=== PATIENT | male | born 1960 | race Caucasian/White ===

== ENCOUNTER 2019-12-02 09:58 | Emergency (ER) | payer OTHER, SELFPAY ==
--- NOTE | ~2019-12-02 | CT_ITS ---
EXAMINATION: CT abd pelvis lumbar w con DATE: 12/02/2019 11:38 INDICATION: Right flank pain. Low back pain. Fall from truck. TECHNIQUE: Computed tomography (CT) of the abdomen and pelvis and lumbar spine was performed with 100 Omnipaque 350 intravenous contrast. Automated exposure control and iterative reconstruction techniqu e were employed. The dose-length product was 774.75 mGy-cm. COMPARISON: None FINDINGS: CT ABDOMEN AND PELVIS: The visualized portions of the lung bases demonstrate mild atelectasis. No ple ural effusion. Calcified right hilar lymph nodes are consistent with old granulomatous disease. The h eart size is normal. No pericardial effusion. The liver, gallbladder, pancreas, and adrenal glands ar e normal. Calcifications in the spleen are consistent with old granulomatous disease. There is a 2 mm stone in right kidney. There is a 10 mm cyst in left kidney. There are no dilated loops of bowel. Th e appendix is normal. There are no pathologically enlarged lymph nodes. There is no free intraperiton eal fluid. There is a subcutaneous hematoma posterior to the pelvis centered to the right of midline. CT LUMBAR SPINE: There is 11 degrees levoscoliosis of lumbar spine. There is mild chronic anterior w edging of T12 vertebral body. There is severely decreased disc height at L5-S1 with endplate remodeli ng. The following disc levels are specifically discussed: L1-L2: The disc does not extend beyond the endplate margin. There is mild bilateral facet joint osteo arthritis. There is no neural foraminal stenosis. There is no central canal stenosis. L2-L3: The disc does not extend beyond the endplate margin. There is mild bilateral facet joint osteo arthritis. There is no neural foraminal stenosis. There is no central canal stenosis. L3-L4: The disc does not extend beyond the endplate margin. There is mild bilateral facet joint osteo arthritis. There is no neural foraminal stenosis. There is no central canal stenosis. L4-L5: The disc is bulging. There is mild bilateral facet joint osteoarthritis. There is mild bilater al neural foraminal stenosis. There is mild central canal stenosis. L5-S1: The disc is bulging. There is mild right and moderate left facet joint osteoarthritis. There i s mild right and moderate left neural foraminal stenosis. There is mild central canal stenosis. IMPRESSION: 1. Subacute hematoma posterior to the pelvis on the right. 2. Severe lower lumbar spondylosis. 3. Lumbar levoscoliosis. Reviewed, dictated and finalized at location A.
[2019-12-02 10:00] VITALS: BP 163/91; PULSE 91; RESP 17; TEMP 36.8; O2SAT 98
--- NOTE | 2019-12-02 10:33 | ED.FALL ---
HPI - Fall General Chief Complaint: Fall Stated Complaint: right hip injury Time Seen by Provider: 12/02/19 10:19 Source: patient Mode of arrival: ambulatory Limitations: no limitations History of Present Illness HPI Narrative: Patient is a 59-year-old male who presents to emergency department for evaluation of injuries related to a fall that occurred this morning at 9 AM patient fell 5 feet onto a metal object sustaining an injury to the lower buttock lumbar region where he developed a large hematoma on the right side patient also notes having struck the right side of his head with an abrasion to the ear. Patient denies any anticoagulant or antiplatelet medications. Patient presents per private vehicle in no distress notes moderate aching pain states he took ibuprofen for. Patient denies syncope loss of consciousness headache neck pain nausea vomiting. Patient denies other injuries or complaints patient was concerned for the large hematoma. . Related Data Home Medications Medication Instructions Recorded Confirmed No Home Medications 12/02/19 12/02/19 Allergies Allergy/AdvReac Type Severity Reaction Status Date / Time Penicillins Allergy Mild SOB Verified 12/02/19 11:17 Review of Systems Review of Systems: All systems reviewed & are unremarkable except as noted in HPI and below PMFSH Surgical History Surgical History H/O inguinal hernia repair Family History Family History Mother Family history of malignant neoplasm of breast in first degree relative Patient's mother is in good health Father Patient's father is in good health Sibling Patient's sister is in good health Patient's brother is in good health Family history of malignant neoplasm Social History Social History Social History: Smoking packs per day: 1.5 Smoking cigarettes per day: 30.0 Years smoked: 10 Smoking pack-years: 15.00 Smoking status: Former smoker Tobacco type: cigarettes Second hand tobacco smoke exposure: No Smoking end date: 06/16/96 Alcohol intake: never Substance use: never Substance use type: does not use Gender identity (if verbalized by the patient): Male Exam Narrative: Exam Narrative: GENERAL: Well-appearing, well-nourished, and in no acute distress. HEAD: Normocephalic, swelling and abrasion to the right temporal scalp as well as the right ear EYES: PERRLA and EOMI. ENT: Nares clear, no rhinorrhea or epistaxis. Mucous membranes moist. Oropharynx without tonsillar hypertrophy exudate or other lesions. NECK: Supple. No adenopathy or masses. CHEST: Clear to auscultation. No respiratory distress. No wheezes rales or rhonchi HEART: Regular rate and rhythm. No murmur heard. Normal peripheral pulses. ABDOMEN: Soft, nontender, nondistended EXTREMITIES: Normal range of motion. No edema. SKIN: Warm, dry, no rash. Patient with a large hematoma involving the right lower paraspinal lumbar segment just above the pelvis extending down into the mid buttock which is swollen firm and tender in comparison to the midline or left. No midline cervical thoracic or lumbar tenderness NEURO: No focal deficits. Alert and oriented x3. Cranial nerves II through XII grossly intact. Normal speech and gait. Neurovascularly intact PSYCH: Normal mood and affect. Course Course Emergency Course: Patient in the room at this time in no distress aware of case findings treatment plan and diagnosis and agreeing to follow-up with general surgery Consultations Consultation #1: Discussed case with general surgery who will follow the patient in clinic Date: 12/02/19 Time: 12:52 Vital Signs Vital signs: Vital Signs Temperature 98.3 F 12/02/19 10:00 Pulse Rate 91 12/02/19 10:00 Respiratory Rate 17 12/02/19 10:00 Blood Pressure 163/91
[2019-12-02 10:40] LABS: Basophils Absolute Auto 0.1 K/mm3 (0.0-0.1); Basophils Percent Auto 0.8 % (0.2-1.2); Eosinophils Absolute Auto 0.5 K/mm3 (0-0.3); Hematocrit 46.1 % (42.0-52.0); Hemoglobin 15.5 g/dL (14.0-18.0); Immature Granulocyte Absolute 0.07 K/mm3 (0.00-0.031); Immature Granulocyte Percent A 0.7 % (0-0.5); Lymphocytes Absolute Auto 2.21 K/mm3 (0.9-3.2); Lymphocytes Percent Auto 20.9 % (18.3-44.2); Mean Corpuscular HGB Conc 33.6 g/dl (32-36); Mean Corpuscular Hemoglobin 29.1 pg (26-34); Mean Corpuscular Volume 86.7 fl (80-100); Mean Platelet Volume 9.8 fl (7.4-10.4); Monocytes Absolute Auto 0.8 K/mm3 (0.1-0.6); Monocytes Percent Auto 7.2 % (2.6-8.5); Neutrophils Absolute Auto 6.9 K/mm3 (1.3-6.7); Neutrophils Percent Auto 65.4 % (45.5-73.1); Platelet Count Result 316 k/mm3 (150-375); Red Blood Count 5.32 M/mm3 (4.6-6.20); Red Cell Distribution Width 12.9 % (11.5-14.5); White Blood Count 10.6 K/mm3 (4.5-10.0)
[2019-12-02 10:50] LABS: INR 0.9; Prothrombin Time 12.1 Seconds (11.1-14.7)
[2019-12-02 10:51] LABS: Partial Thromboplastin Time 27.6 SECONDS (22.3-36.8)
[2019-12-02 10:55] LABS: Alanine Aminotransferase 22 U/L (4-50); Albumin Level 4.6 g/dL (3.5-5.1); Alkaline Phosphatase 66 U/L (38-126); Aspartate Amino Transferase 25 U/L (17-59); Bilirubin,Total 0.5 mg/dL (0.2-1.3); Blood Urea Nitrogen 15 mg/dL (9-20); Calcium 9.7 mg/dL (8.4-10.2); Carbon Dioxide 25 mmol/L (22-30); Chloride 104 mmol/L (98-107); Estimated CRCL calculation 71 ml/min; Estimated Glomerular Filt Rate > 60; Glucose 107 mg/dL (75-110); Lipase 90 U/L (23-300); Potassium 3.9 mmol/L (3.4-5.0); Sodium 137 mmol/L (137-145)
[2019-12-02 13:06] LABS: Magnesium 2.1 mg/dL (1.6-2.3); Phosphorus 3.7 mg/dL (2.5-4.5)
[2019-12-02 13:07] VITALS: BP 165/79; PULSE 84; RESP 18; O2SAT 98
[2019-12-02 13:16] LABS: NT Pro B Type Natriuretic Pept 51 PG/ML (5-100)
[2019-12-02 13:20] LABS: Beta-Hydroxybutyrate/Acetoacetate 0.06 mmol/L (0.02-0.27)
== END 2019-12-02 13:09 | disposition home or self-care (01) ==
PROVIDERS: Emergency Medicine Emergency Medical Services; Emergency Provider Emergency Medicine; PCP Family Medicine
DX: S30.0XXA Contusion of lower back and pelvis, initial encounter (principal); S09.90XA Unspecified injury of head, initial encounter; M47.816 Spondylosis without myelopathy or radiculopathy, lumbar region; W17.89XA Other fall from one level to another, initial encounter
CPT/HCPCS: 36415; 72132; 74177; 80053; 82010; 83690; 83735; 83880; 84100; 85025; 85610; 85730; 96365; 99284; A9270; J0131; Q9967

== ENCOUNTER 2020-05-12 01:26 | Outpatient (CLI) | payer OTHER, SELFPAY ==
[2020-05-12 21:24] LABS: SARS-CoV-2 RNA PCR Negative
== END 2020-05-12 01:27 | disposition home or self-care (01) ==
LOC: ANHCOVIDDT 01:26
PROVIDERS: PCP Family Medicine; Visit Provider Internal Medicine Gastroenterology
DX: Z01.812 Encounter for preprocedural laboratory examination (principal); Z11.59 Encounter for screening for other viral diseases
CPT/HCPCS: 87635; C9803; U0003

== ENCOUNTER 2020-05-15 01:42 | Day surgery (SDC) | payer OTHER, SELFPAY ==
[2020-05-03 13:14] VITALS: BMI 29.6
[2020-05-15 09:13] VITALS: BP 142/88; PULSE 62; RESP 16; TEMP 36.6; O2SAT 99; BMI 28.3
[2020-05-15] MEDS: LACTATED RINGERS 1,000 ML 150 ML IV CONT (09:29)
--- NOTE | 2020-05-15 09:39 | WPDGICN ---
Assessment and Plan Assessment and plan (1) History of colon polyps: Code(s): Z86.010 - Personal history of colonic polyps Status: Acute Assessment and Plan: Patient has a history of colon polyps by colonoscopy 7 years prior to this. His family history is significant grandmother had colon cancer. Plan is for surveillance colonoscopy now and 5 year intervals in the future. High-fiber diet is advised. GI Consult Note Consult date/time: 05/15/20 09:39 HPI: Donald Glass is a 59 year old male Presents for screening colonoscopy. Patient has a history of colon polyps perhaps 7 years ago. His current weight appetite bowel movements are normal. He denies abdominal pain. He has had no bleeding. Family history is significant that his grandmother had colon cancer. Review of Systems Review of Systems: All systems reviewed & are unremarkable except as noted in HPI and below PMFSH Past Medical History Medical History (Updated 05/15/20 @ 09:41 by Donald Luu MD) Kidney stone Mixed hyperlipidemia Surgical History Surgical History H/O inguinal hernia repair Family History Family History Mother Family history of malignant neoplasm of breast in first degree relative Patient's mother is in good health Father Patient's father is in good health Diabetes mellitus Sibling Patient's sister is in good health Patient's brother is in good health Family history of malignant neoplasm Social History Social History Social History: Smoking packs per day: 1.5 Smoking cigarettes per day: 30.0 Years smoked: 10 Smoking pack-years: 15.00 Smoking status: Former smoker Tobacco type: cigarettes Second hand tobacco smoke exposure: No Smoking end date: 06/16/96 Alcohol intake: never Substance use: never Substance use type: does not use Living arrangements: with family Additional occupation/education comments: self employed Gender identity (if verbalized by the patient): Male Spiritual care concerns: No Meds Home Medications and Allergies Home Medications Medication Instructions Recorded Confirmed Type No Home Medications 05/03/20 05/15/20 History Allergies Allergy/AdvReac Type Severity Reaction Status Date / Time Penicillins Allergy Mild Anaphylactic Verified 05/15/20 09:12 Shock Vital Signs Vital Signs - 24 hr 05/15/20 09:13 Temperature 97.8 F Pulse Rate 62 Respiratory Rate 16 Blood Pressure 142/88 H Pulse Oximetry 99 Exam Narrative: Exam Narrative: Physical exam reveals patient to be alert. Vital signs stable. HEENT exam unremarkable. Lungs are clear to auscultation and percussion. Heart is without murmur or extra sounds. Abdominal exam bowel sounds are present soft nontender with no organomegaly. Digital external rectal exam is normal.
--- NOTE | 2020-05-15 09:46 | WPDANESEPPF ---
Anes - Initial Pre Proc Eval Procedure: Operation Date: 05/15/20 10:30 Proposed Procedures p Screening Colonoscopy - Donald Luu MD Date/Time: 05/15/20 09:46 Surgeon: Donald Luu MD Pre Op Diagnosis: Neoplasm Screening/ Hx Of Colon Polyps Patient Data Age: 59 Gender: M Height: 5 ft 9 in Weight: 87.2 kg Last Vital Signs Temp 97.8 F 05/15/20 09:13 Pulse 62 05/15/20 09:13 Resp 16 05/15/20 09:13 BP 142/88 H 05/15/20 09:13 Pulse Ox 99 05/15/20 09:13 Allergies Allergy/AdvReac Type Severity Reaction Status Date / Time Penicillins Allergy Mild Anaphylactic Verified 05/15/20 09:12 Shock Home Medications Medication Instructions Recorded Confirmed Type No Home Medications 05/03/20 05/15/20 History Patient hx anesthesia problems: none Family hx anesthesia problems: none PMFSH Past Medical History Medical History (Updated 05/15/20 @ 09:41 by Donald Luu MD) Kidney stone Mixed hyperlipidemia Surgical History Surgical History H/O inguinal hernia repair Family History Family History Mother Family history of malignant neoplasm of breast in first degree relative Patient's mother is in good health Father Patient's father is in good health Diabetes mellitus Sibling Patient's sister is in good health Patient's brother is in good health Family history of malignant neoplasm Social History Social History Social History: Smoking packs per day: 1.5 Smoking cigarettes per day: 30.0 Years smoked: 10 Smoking pack-years: 15.00 Smoking status: Former smoker Tobacco type: cigarettes Second hand tobacco smoke exposure: No Smoking end date: 06/16/96 Alcohol intake: never Substance use: never Substance use type: does not use Living arrangements: with family Additional occupation/education comments: self employed Gender identity (if verbalized by the patient): Male Spiritual care concerns: No Anes - Eval Final PreProcedure Day of Procedure 05/15/20 09:46 Patient weight: overweight Heart: regular rate and rhythm Lungs: clear to auscultation Airway: Mallampati scale class II Neurological: alert and oriented Last oral intake: >/= 8 hours ASA classification: II Emergent: no Anesthetic plan: proceed Anesthesia type and monitoring: general GIVS and standard monitoring Informed Consent: The patient's anesthetic plan and its attendant risks and benefits were discussed with the patient/family/POA. Questions were solicited and answers provided to the satisfaction of the patient/family/POA.
[2020-05-15 10:04] VITALS: BP 112/68; PULSE 68; RESP 25; O2SAT 98
[2020-05-15 10:14] VITALS: BP 102/67; PULSE 59; RESP 19; O2SAT 99
[2020-05-15 10:24] VITALS: BP 118/73; PULSE 54; RESP 20; O2SAT 100
== END 2020-05-15 10:34 | disposition home or self-care (01) ==
PROVIDERS: PCP Family Medicine; Visit Provider Internal Medicine Gastroenterology
PROC: 0DJD8ZZ Inspection of Lower Intestinal Tract, Via Natural or Artificial Opening Endoscopic (ICD-10-PCS; CPT 45378; principal; 2020-05-15 10:30)
DX: Z12.11 Encounter for screening for malignant neoplasm of colon (principal); K63.5 Polyp of colon; Z80.0 Family history of malignant neoplasm of digestive organs; E78.2 Mixed hyperlipidemia; Z87.891 Personal history of nicotine dependence; K64.8 Other hemorrhoids
CPT/HCPCS: 45385; 87635; 88305; C9803; J2001; J2704; J7120; U0003

== ENCOUNTER 2020-06-14 07:24 | Outpatient (CLI) | payer OTHER, SELFPAY ==
--- NOTE | 2020-06-14 | ECHO_ITS ---
Patient Info Name: Donald Glass Age: 59 years : 1960 Gender: Male Ht: 69 in Wt: 200 lbs BSA: 2.12 m2 HR: 61 bpm BP: 164 / 111 mmHg Heart Rhythm: Sinus Rhythm Technical Quality: Good Exam Date: 06/14/2020 7:58 AM Exam Location: [facility] Patient Status: Outpatient Admit Date: 06/14/2020 Staff Ordering Physician: Edwin, Hui Goodman MD Hydraulic Engineer: Shalini Henderson RDCS Attending Provider: Lilian, Hui Goodman MD Referring Physician: Edwin ISABEL; Exam Type: CA echo doppler color flow Study Info Indications - LEG CRAMPS Complete two-dimensional, color flow and Doppler transthoracic echocardiogram is performed. Summary 1. Complete two-dimensional, color flow and Doppler transthoracic echocardiogram is performed. 2. Mildly calcified mitral valve annulus. 3. Otherwise unremarkable examination. Left Ventricle Left ventricular chamber dimension is normal. Left ventricular systolic function is normal, estimated at 60-65%. The left ventricular diastolic function is normal. Right Ventricle Right ventricular chamber dimension is normal. Left Atria Left atrial chamber dimension is normal. Right Atria Right atrial chamber dimension is normal. Aortic Valve The aortic valve is normal. Pulmonic Valve The pulmonic valve is normal. Mitral Valve The mitral valve has normal leaflets. The mitral valve annulus is mildly calcified. Tricuspid Valve The tricuspid valve leaflets are normal. Pericardium/Pleural The pericardium appears normal. Aorta The aortic root size at the sinus of Valsalva is normal. Left Ventricular Outflow Tract Name Value Normal LVOT 2D LVOT Diameter 2.0 cm LVOT Doppler LVOT Peak Gradient 3 mmHg LVOT Mean Gradient 2 mmHg LVOT VTI 18 cm LVOT VTI/AV VTI Ratio 0.7 LVOT Stroke Volume 56 ml LVOT CO 12.4 l/min LVOT CI 5.8 l/min/m2 Mitral Valve Name Value Normal MV Doppler MV Decel [place] 336 cm/s2 MV PHT 66 ms MV Area (PHT) 3.3 cm2 4.0-5.0 MV Diastolic Function MV E Peak Velocity 77 cm/s MV A Peak Velocity 68 cm/s MV E/A 1.1 MV Decel Time 229 ms MV Annular TDI MV E/e' (Septal) 10.4 <=8.0 MV E/e' (Lateral) 7.4 <=8.0 MV E/e' (Average)
== END 2020-06-14 07:25 | disposition home or self-care (01) ==
PROVIDERS: PCP Family Medicine; Visit Provider Family Medicine
DX: G47.62 Sleep related leg cramps (principal)
CPT/HCPCS: 93306

== ENCOUNTER 2023-10-12 17:30 | Observation (INO) | payer OTHER, SELFPAY ==
[2023-10-12] VITALS (7 sets, daily range): BP systolic 126–155; BP diastolic 76–94; PULSE 59–75; RESP 15–22; TEMP 36.4–36.8; O2SAT 97–100; BMI 25.1
--- NOTE | ~2023-10-12 | XR_ITS ---
EXAMINATION: XR chest 1V portable DATE: 10/12/2023 20:48 INDICATION: Diabetic ketoacidosis. TECHNIQUE: A single frontal view of the chest was obtained on 2 radiographs. COMPARISON: Chest 2 views 09/07/2018 FINDINGS: There is no pneumonia, pleural effusion or pneumothorax. The heart size is normal. IMPRESSION: 1. No acute cardiopulmonary disease. Reviewed, dictated and finalized at location E.
[2023-10-12 17:39] LABS: Glucose Point of Care 460 mg/dl (65-105)
[2023-10-12 17:54] LABS: Basophils Percent Auto 0.6 % (0.2-1.2); Eosinophils Absolute Auto 0.2 K/mm3 (0-0.3); Eosinophils Percent Auto 3.4 % (0-4.4); Hematocrit 45.6 % (42.0-52.0); Hemoglobin 15.4 g/dL (14.0-18.0); Immature Granulocyte Absolute 0.03 K/mm3 (0.00-0.031); Immature Granulocyte Percent A 0.4 % (0-0.5); Lymphocytes Absolute Auto 2.08 K/mm3 (0.9-3.2); Mean Corpuscular HGB Conc 33.8 g/dl (32-36); Mean Corpuscular Hemoglobin 29.1 pg (26-34); Mean Platelet Volume 10.8 fl (7.4-10.4); Monocytes Absolute Auto 0.6 K/mm3 (0.1-0.6); Monocytes Percent Auto 8.2 % (2.6-8.5); Neutrophils Absolute Auto 3.8 K/mm3 (1.3-6.7); Neutrophils Percent Auto 56.4 % (45.5-73.1); Platelet Count Result 197 k/mm3 (150-375); White Blood Count 6.7 K/mm3 (4.5-10.0)
[2023-10-12 18:00] LABS: Add Urine Microscopic? NO; Appearance Urine Clear (Clear); Bilirubin Urine Negative (Negative); Blood Urine Negative (Negative); Color Urine Yellow (Yellow); Glucose Urine UA 3+ mg/dL (Negative); Ketones Urine 4+ mg/dL (Negative); Leukocyte Esterase Ur Negative LEU/UL (Negative); Nitrate Urine Negative (Negative); Protein Urine Negative (Negative); Specific Grav Ur 1.033 (1.001-1.035); Urobilinogen Urine 0.2 mg/dL (<2.0)
[2023-10-12 18:04] LABS: Alanine Aminotransferase 22 U/L (6-50); Alkaline Phosphatase 86 U/L (38-126); Anion Gap 24 mmol/L (4-12); Aspartate Amino Transferase 20 U/L (17-59); Bilirubin,Total 0.7 mg/dL (0.2-1.3); Blood Urea Nitrogen 23 mg/dL (9-20); Calcium 10.8 mg/dL (8.4-10.2); Carbon Dioxide 11 mmol/L (22-30); Chloride 101 mmol/L (98-107); Estimated CRCL calculation 68 ml/min; Estimated Glomerular Filt Rate > 60; Glucose 432 mg/dL (65-110); Phosphorus 5.6 mg/dL (2.5-4.5); Sodium 136 mmol/L (137-145)
[2023-10-12 18:08] LABS: Alveolar/Arterial O2 Gradient 22.4 mmHg; Carboxyhemoglobin 0.5 % THb (0-2.0); Fractional Inspired Oxygen 21 %; HCO3 ABG 11.4 mEq/l (22.0-26.0); Methemoglobin ABG 0.2 %THb (0-1.5); Oxygen Content ABG 19.2 %vol (16.0-22.0); Oxygen Saturation ABG 97.5 % (95.0-100.0); Oxyhemoglobin 96.3 % THb (90.0-100.0); PO2 ABG 101.7 mmHg (80.0-100.0); PO2 FiO2 Ratio Arterial Blood 4.84 %; Total Hemoglobin 14.1 g/dL (12.0-18.0); pH ABG 7.345 (7.350-7.450)
[2023-10-12 18:11] LABS: Device ROOM AIR; PCO2 ABG 21.4 mmHg (35.0-45.0); Site Drawn LEFT BRACHIAL
[2023-10-12] MEDS: SODIUM CHLORIDE 0.9% IV 1,000 ML 999 ML IV CONT ×2 (18:14)
[2023-10-12 18:42] LABS: Beta-Hydroxybutyrate/Acetoacetate 8.13 mmol/L (0.02-0.27)
[2023-10-12 18:47] LABS: Hemoglobin A1C > 14.0 % (<5.7)
--- NOTE | 2023-10-12 18:51 | PM.IMHP ---
H&P: HPI History of Present Illness Date/Time: 10/12/23 19:00 Chief Complaint: High blood sugar. Narrative: This is very pleasant 63-year-old male with hypertension and hyperlipidemia who presented to the emergency department for evaluation of hyperglycemia. The patient provides the following history. He presented to a local urgent care today for evaluation of weakness and increased thirst. His glucose was greater than 500 he was directed to the emergency department. With further questioning he endorses a pretty rapid an unintentional 50 lb weight loss over the last couple of months. He also has increased thirst and urination and reports that his mouth has been constantly dry the last several days. He is weak and overall just not feeling well. He denies blurry vision, paresthesias, and nonhealing wounds. He also denies fever, chills, sweats, cold and flu symptoms, epigastric and abdominal pain, chest pain, shortness of breath, nausea, vomiting, diarrhea, and dysuria. In the ED: He was afebrile on arrival with stable vital signs. Labs were significant for sodium of 136, potassium 4.0, chloride 101, carbon dioxide 11, anion gap 24, BUN 23, creatinine 1.00, glucose 432, calcium 10.8, beta hydroxybutyrate 8.13. Urine was positive for 3+ glucose and 4+ ketones. ABG showed a pH of 7.345, pCO2 21.4, bicarb 11.4. He was given a 2 L fluid bolus in the ED and is being admitted to the ICU on an insulin drip. Review of Systems Review of Systems: 12 systems were reviewed and are negative except for as per HPI. [facility] Past Medical History Medical History (Updated 10/12/23 @ 22:58 by Rosa Smith PA-C) Hypertension Kidney stone Mixed hyperlipidemia Surgical History Surgical History (Updated 10/12/23 @ 18:55 by Rosa Smith PA-C) History of colonoscopy with polypectomy History of inguinal hernia repair Family History Family History Mother Family history of malignant neoplasm of breast in first degree relative Patient's mother is in good health Father Patient's father is in good health Diabetes mellitus Sibling Patient's sister is in good health Patient's brother is in good health Family history of malignant neoplasm Social History Social History (Updated 10/12/23 @ 18:58 by Rosa Smith PA-C) Social History: Surrogate medical decision maker: Varsha Glass, spouse. Code status: Full code. Smoking packs per day: 1.5 Smoking cigarettes per day: 30.0 Years smoked: 10 Smoking pack-years: 15.00 Smoking status: Former smoker Tobacco type: cigarettes Second hand tobacco smoke exposure: No Smoking end date: 06/16/96 Alcohol intake: never Substance use: never Substance use type: does not use Do You Feel Safe in your Home?: Yes Lack of Transportation: No Lack of Food: Never True Current Housing: I Have Housing Concerned About Future Housing: No Difficulty Paying Gas/Electric Bills: No Difficulty Paying for Meds: No Currently Unemployed: No Education: High School Diploma/GED Difficulty w/ Childcare or Family Care: No Living arrangements: with family Occupation/Education: occupation Additional occupation/education comments: self employed Spiritual care concerns: No Meds Home Medications and Allergies Home Medications Medication Instructions Recorded Confirmed Type fenofibrate 160 mg tablet 160 mg DAILY 10/12/23 10/12/23 History losartan 25 mg tablet 25 mg PO DAILY 10/12/23 10/12/23 History rosuvastatin 10 mg tablet 10 mg PO DAILY 10/12/23 10/12/23 History tadalafil 20 mg tablet 20 mg PO PRN PRN Erectile 10/12/23 10/12/23 History Dysfunction Allergies Allergy/AdvReac Type Severity Reaction Status Date / Time Penicillins Allergy Mild Anaphylactic Verified 05/15/20 09:12 Shock Vital Signs Vital Signs - 24 hr 10/12/23 17:36 10/12/23 17:50 10/12/23 18:06 Temperature 97.5 F
--- NOTE | 2023-10-12 18:52 | ED.GENADULT ---
HPI - General Adult General Chief complaint: Weakness Stated complaint: weakness, high BG Time Seen by Provider: 10/12/23 17:40 History of Present Illness HPI narrative: Patient is a 63-year-old male who presents ER with weakness. Ongoing over last month. Associated with 50 lb weight loss. Reports he feels like he has a dry mouth but he is thirsty all the time. He has been urinating and not lot as well. No fevers or chills or sweats. No chest pain or chest pressure. He has been without diarrhea. Related Data Home Medications Medication Instructions Recorded Confirmed fenofibrate 160 mg tablet 160 mg 10/12/23 losartan 25 mg tablet 25 mg 10/12/23 tadalafil 20 mg tablet 20 mg PO 10/12/23 Allergies Allergy/AdvReac Type Severity Reaction Status Date / Time Penicillins Allergy Mild Anaphylactic Verified 05/15/20 09:12 Shock Review of Systems Review of Systems: All systems reviewed & are unremarkable except as noted in HPI and below Constitutional: Constitutional: Denies chills, Reports fatigue, Denies fever(s) and Reports weakness ENT: Reports system reviewed and no additional complaints, except as documented Cardiovascular: Cardiovascular: Reports no additional cardiovascular complaints Respiratory: Respiratory: Reports no additional respiratory complaints Gastrointestinal: Gastrointestinal: Reports no additional gastrointestinal complaints Endocrine: Endocrine: Denies excessive sweating, Reports fatigue, Reports polydipsia and Reports polyuria PMFSH Past Medical History Medical History Kidney stone Mixed hyperlipidemia Surgical History Surgical History (Updated 10/12/23 @ 18:55 by Rosa Smith PA-C) History of colonoscopy with polypectomy History of inguinal hernia repair Family History Family History Mother Family history of malignant neoplasm of breast in first degree relative Patient's mother is in good health Father Patient's father is in good health Diabetes mellitus Sibling Patient's sister is in good health Patient's brother is in good health Family history of malignant neoplasm Social History Social History (Updated 10/12/23 @ 18:58 by Rosa Smith PA-C) Social History: Surrogate medical decision maker: Varsha lGass, spouse. Code status: Full code. Smoking packs per day: 1.5 Smoking cigarettes per day: 30.0 Years smoked: 10 Smoking pack-years: 15.00 Smoking status: Former smoker Tobacco type: cigarettes Second hand tobacco smoke exposure: No Smoking end date: 06/16/96 Alcohol intake: never Substance use: never Substance use type: does not use Living arrangements: with family Occupation/Education: occupation Additional occupation/education comments: self employed Spiritual care concerns: No Exam Narrative: GENERAL: Well-appearing, well-nourished, and in no acute distress. HEAD: Normocephalic, atraumatic. ENT: Mucous membranes moist. NECK: Supple. CHEST: Clear to auscultation. No respiratory distress. HEART: Regular rate and rhythm. Normal peripheral pulses. ABDOMEN: Soft, nontender, nondistended. EXTREMITIES: Normal range of motion. No edema. SKIN: Warm, dry, no rash. NEURO: Alert and oriented x3. PSYCH: Normal mood and affect. Course Course Emergency Course: Patient resting comfortably. Informed of results. Admit to the hospitalist service. Consulted ICU. Vital Signs Vital signs: Vital Signs Temperature 97.5 F L 10/12/23 17:36 Pulse Rate 69 10/12/23 17:36 Respiratory Rate 22 H 10/12/23 17:36 Blood Pressure 155/94 H 10/12/23 17:36 Pulse Oximetry 100 10/12/23 17:36 Oxygen Delivery Room Air 10/12/23 17:36 Temperature 97.5 F L 10/12/23 17:36 Pulse Rate 59 L 10/12/23 18:57 Respiratory Rate 18 10/12/23 18:57 Blood Pressure 139/81 10/12/23 18:57 Pul
[2023-10-12 19:04] LABS: Glucose Point of Care 341 mg/dl (65-105)
[2023-10-12] MEDS: INSULIN HUMAN REGULAR (*BKC) 100 UNITS/ML IV PUSH (19:10)
[2023-10-12] MEDS: SODIUM CHLORIDE 0.9% IV 1,000 ML 150 ML IV CONT (19:10)
[2023-10-12] MEDS: INSULIN HUMAN REGULAR (*BKC) 100 UNITS in SODIUM CHLORIDE 0.9% IV 99 ML 7.8 UNITS IV CONT (19:31)
[2023-10-12 20:05] LABS: Glucose Point of Care 328 mg/dl (65-105)
--- NOTE | 2023-10-12 20:38 | PC.NURSE ---
Radiology requesting to change 2 view CXR to one view; Spoke with Rosa BARTON and she is agreeable to change.
[2023-10-12 21:03] LABS: Glucose Point of Care 264 mg/dl (65-105)
--- NOTE | 2023-10-12 21:18 | ADMGEN ---
This patient, Donald Glass, was admitted to Intensive Care Unit-5 at 2016. Patient/family oriented to hospital policies and general routines including ID bracelet, bed and alarms, visiting hours, pain management, procedures, bathroom and other care routines, personal items, smoking policy, room service/diet, and visiting hours. Information on how to activate the Rapid Response Team has been discussed. Patient/Family are encouraged to report perceived risks to care and to ask questions if they do not understand what they are told or what they should do.
--- NOTE | 2023-10-12 21:21 | ADMGEN ---
This patient, Donald Glass, was admitted to Intensive Care Unit-5. Patient/family oriented to hospital policies and general routines including ID bracelet, bed and alarms, visiting hours, pain management, procedures, bathroom and other care routines, personal items, smoking policy, room service/diet, and visiting hours. Information on how to activate the Rapid Response Team has been discussed. Patient/Family are encouraged to report perceived risks to care and to ask questions if they do not understand what they are told or what they should do.
[2023-10-12] MEDS: KCL 20 MEQ/D5/0.45% SOD CHL 1,000 ML 150 ML IV CONT (22:00)
[2023-10-12 22:01] LABS: Glucose Point of Care 246 mg/dl (65-105)
[2023-10-12] MEDS: DEXTROSE 5%/0.45% SOD CHL 1,000 ML 150 ML IV CONT (22:06)
[2023-10-12 23:02] LABS: Glucose Point of Care 234 mg/dl (65-105)
[2023-10-12 23:10] LABS: Anion Gap 13 mmol/L (4-12); Blood Urea Nitrogen 19 mg/dL (9-20); Calcium 9.2 mg/dL (8.4-10.2); Carbon Dioxide 14 mmol/L (22-30); Chloride 109 mmol/L (98-107); Estimated CRCL calculation 83 ml/min; Estimated Glomerular Filt Rate > 60; Glucose 230 mg/dL (65-110); Potassium 2.7 mmol/L (3.4-5.0); Sodium 136 mmol/L (137-145)
[2023-10-12] MEDS: POTASSIUM CHLORIDE 20 MEQ PACKET (FOR LIQUID) 40 MEQ PO (23:36)
[2023-10-13] VITALS (8 sets, daily range): BP systolic 113–150; BP diastolic 47–84; PULSE 56–68; RESP 18–21; TEMP 36.2–36.8; O2SAT 98–100; BMI 25.1
[2023-10-13 00:09] LABS: Glucose Point of Care 214 mg/dl (65-105)
[2023-10-13 00:24] LABS: MRSA (PCR) NOT DETECTED (NOT DETECTE)
[2023-10-13 00:53] LABS: Anion Gap 9 mmol/L (4-12); Blood Urea Nitrogen 18 mg/dL (9-20); Calcium 8.9 mg/dL (8.4-10.2); Carbon Dioxide 16 mmol/L (22-30); Chloride 110 mmol/L (98-107); Estimated CRCL calculation 83 ml/min; Estimated Glomerular Filt Rate > 60; Glucose 229 mg/dL (65-110); Potassium 3.5 mmol/L (3.4-5.0); Sodium 135 mmol/L (137-145)
[2023-10-13 01:10] LABS: Glucose Point of Care 244 mg/dl (65-105)
[2023-10-13] MEDS: POTASSIUM CHLORIDE 20 MEQ PACKET (FOR LIQUID) 40 MEQ PO (01:44)
[2023-10-13 02:02] LABS: Glucose Point of Care 292 mg/dl (65-105)
[2023-10-13] MEDS: INSULIN HUMAN REGULAR (*BKC) 100 UNITS in SODIUM CHLORIDE 0.9% IV 99 ML 10.3 UNITS IV CONT (02:02)
[2023-10-13 03:04] LABS: Glucose Point of Care 230 mg/dl (65-105)
[2023-10-13 03:58] LABS: Anion Gap 12 mmol/L (4-12); Blood Urea Nitrogen 16 mg/dL (9-20); Carbon Dioxide 14 mmol/L (22-30); Chloride 112 mmol/L (98-107); Estimated CRCL calculation 83 ml/min; Estimated Glomerular Filt Rate > 60; Glucose 264 mg/dL (65-110); Magnesium 1.9 mg/dL (1.6-2.3); Potassium 4.2 mmol/L (3.4-5.0); Sodium 138 mmol/L (137-145)
[2023-10-13 04:17] LABS: Glucose Point of Care 269 mg/dl (65-105)
[2023-10-13 05:03] LABS: Glucose Point of Care 202 mg/dl (65-105)
[2023-10-13 06:11] LABS: Glucose Point of Care 203 mg/dl (65-105)
[2023-10-13] MEDS: KCL 20 MEQ/D5/0.45% SOD CHL 1,000 ML 150 ML IV CONT (06:54)
[2023-10-13 07:09] LABS: Glucose Point of Care 128 mg/dl (65-105)
[2023-10-13 07:24] LABS: Anion Gap 7 mmol/L (4-12); Blood Urea Nitrogen 14 mg/dL (9-20); Carbon Dioxide 19 mmol/L (22-30); Chloride 114 mmol/L (98-107); Estimated CRCL calculation 94 ml/min; Estimated Glomerular Filt Rate > 60; Glucose 119 mg/dL (65-110); Potassium 3.7 mmol/L (3.4-5.0); Sodium 140 mmol/L (137-145)
[2023-10-13 07:56] LABS: Glucose Point of Care 134 mg/dl (65-105)
[2023-10-13] MEDS: FENOFIBRATE 160 MG TABLET BY MOUTH (08:26)
[2023-10-13] MEDS: ROSUVASTATIN 10 MG TABLET PO (08:26)
[2023-10-13] MEDS: LOSARTAN POTASSIUM 25 MG TABLET PO (08:27)
[2023-10-13] MEDS: ENOXAPARIN 40 MG/0.4 ML SYRINGE SUB-Q (08:27)
[2023-10-13] MEDS: INSULIN GLARGINE (*BKC) 100 UNITS/ML 10 UNITS SUB-Q (08:40)
--- NOTE | 2023-10-13 08:43 | WPDCNINT ---
Assessment and Plan Assessment and plan (1) DKA (diabetic ketoacidosis): Code(s): E11.10 - Type 2 diabetes mellitus with ketoacidosis without coma Status: Acute Assessment and Plan: Patient presented with DKA with diagnosis of new onset of diabetes mellitus Patient was given IVF bolus and started on infusion Patient was started on Insulin infusion and Q1H glucose monitoring was done Serial labs were performed Start diet Anion gap has now closed. Patient is asymptomatic I will transition patient to SC insulin for now. Start Lantus with meal insulin and sliding scale Depending on his requirement he may be able to go home eventually on oral hypoglycemics or G LP 1 agonist Dietitian and elementary educator consult up and No evidence of infection (2) Hypertension: Code(s): I10 - Essential (primary) hypertension Status: Acute Assessment and Plan: Continue losartan (3) Mixed hyperlipidemia: Code(s): E78.2 - Mixed hyperlipidemia Status: Acute Assessment and Plan: Continue statin and fenofibrate Plan DVT prophylaxis -Lovenox Nutrition -consistent carbohydrate diet Code Status - Full Code Transfer out ICU today Personal Driver Consult Note Consult date: 10/13/23 Reason for consult: DKA HPI: Donald Glass is a 63 year old male with past medical history of hypertension and hyperlipidemia who presented to the emergency department for evaluation of hyperglycemia. Patient initially presented to a local urgent care today for evaluation of weakness and increased thirst. His glucose was greater than 500 he was directed to the emergency department. Patient states that for last many days he has been feeling thirsty and urinating a lot. From last 2 days he has been feeling weak. He also had some nausea yesterday. Denies any vomiting. He has been losing weight although his appetite has been good. Patient denies fever, chest pain, shortness of breath, cough, vomiting, abdominal pain,, diarrhea, headache or constipation. No dysuria hematuria. All other systems were reviewed and were negative With further questioning he endorses a pretty rapid an unintentional 50 lb weight loss over the last couple of months. He also has increased thirst and urination and reports that his mouth has been constantly dry the last several days. He is weak and overall just not feeling well. He denies blurry vision, paresthesias. Workup in the ER showed sodium of 136, potassium 4.0, chloride 101, carbon dioxide 11, anion gap 24, BUN 23, creatinine 1.00, glucose 432, calcium 10.8, beta hydroxybutyrate 8.13. Urine was positive for 3+ glucose and 4+ ketones. ABG showed a pH of 7.345, pCO2 21.4, bicarb 11.4. He was given a 2 L fluid bolus in the ED and was admitted to ICU on an insulin drip. UA was negative UTI chest x-ray was clear for any infiltrates Review of Systems Review of Systems: All systems reviewed & are unremarkable except as noted in HPI and below (HPI) [facility] Past Medical History Medical History Hypertension Kidney stone Mixed hyperlipidemia Surgical History Surgical History History of colonoscopy with polypectomy History of inguinal hernia repair Family History Family History Mother Family history of malignant neoplasm of breast in first degree relative Patient's mother is in good health Father Patient's father is in good health Diabetes mellitus Sibling Patient's sister is in good health Patient's brother is in good health Family history of malignant neoplasm Social History Social History Social History: Surrogate medical decision maker: Varsha Glass, spouse. Code status: Full code. Smoking packs per day: 1.25 Smoking cigarettes per day: 25.0 Years smoked: 10 Smoking pack-year
--- NOTE | 2023-10-13 09:53 | PC.NURSE ---
0945-Insulin infusion and IV fluids all discontinued at 0945 per physician to nurse communication to stop insulin gtt and fluids.
[2023-10-13 10:58] LABS: Anion Gap 6 mmol/L (4-12); Blood Urea Nitrogen 12 mg/dL (9-20); Calcium 8.4 mg/dL (8.4-10.2); Carbon Dioxide 17 mmol/L (22-30); Chloride 111 mmol/L (98-107); Estimated CRCL calculation 108 ml/min; Estimated Glomerular Filt Rate > 60; Glucose 261 mg/dL (65-110); Potassium 3.8 mmol/L (3.4-5.0); Sodium 134 mmol/L (137-145)
--- NOTE | 2023-10-13 11:21 | PCFNICU ---
ICU Rounding Note: Pt current nutrition is DBCC Last recorded weight is 77.2 kg. Bowel Motility: +BM reported 10/10 Labs Reviewed:Glu 119, HbA1c > 14% Meds Noted:Lantus, NovoLog, Lovenox Skin: WNL Additional Notes: Patient in for DKA. early childhood educator aide did see patient today. Dietitian will educate prior to discharge. Agree with diet orders. Following daily in ICU rounds.
[2023-10-13 11:31] LABS: Glucose Point of Care 259 mg/dl (65-105)
[2023-10-13] MEDS: INSULIN ASPART (*BKC) 100 UNITS/ML SUB-Q ×5 (11:34→20:44)
--- NOTE | 2023-10-13 13:14 | PC.NURSE ---
This patient, Donald Glass, was transferred to [[id number]] on 10/13/23 at 1305. Personal belongings sent with patient. Report given to [Yasmeen CURRIE]. Appropriate documentation sent with patient.
--- NOTE | 2023-10-13 13:47 | PC.NURSE ---
This patient, Donald Glass, was received from [ICU ] on 10/13/23 at 1300. Patient/family oriented to unit policies and routines
--- NOTE | 2023-10-13 16:32 | PM.IMPN ---
Progress Note: A&P Assessment and Plan (1) Diabetic ketoacidosis associated with type 2 diabetes mellitus: Code(s): E11.10 - Type 2 diabetes mellitus with ketoacidosis without coma Status: Acute (2) New onset type 2 diabetes mellitus: Code(s): E11.9 - Type 2 diabetes mellitus without complications Status: Acute (3) Hypertension: Code(s): I10 - Essential (primary) hypertension Status: Acute (4) Mixed hyperlipidemia: Code(s): E78.2 - Mixed hyperlipidemia Status: Acute Plan dka fluid hydration Continue insulin drip which will be titrated per DKA protocol. Monitor q.4 hour BMPs and Q hourly Accu-Cheks. He will be transition to long-acting insulin upon resolution of DKA. Dietitian and life skills educator consulted. Blood pressures were reviewed and they are stable. new onset DM Pt is stable now for transfer to the floor Subjective Date/time seen: 10/13/23 16:32 Interval history: Pt ok to move out of icu off the insulin drip Pt here for dka New onset dm Review of Systems Review of Systems: asymptomatic Exam Narrative: General: Pt is alert awake Lungs/Chest: Trachea central Clear BS B/L, No crackles or wheezing. Cardiac: RRR. Normal S1 S2. No murmurs Circulation: Pedal pulses are intact and symmetrical. Abdomen: Normal bowel sounds.. Soft. NT. ND. Extremities: No clubbing, cyanosis or edema. Warm : Felix in place Neurologic: Follows commands. Moves all 4 extremities PERRL Skin: No Rash Objective Data Vital Signs Vital Signs: Vital Signs - 24 hr 10/12/23 17:36 10/12/23 17:50 10/12/23 18:06 Temperature 36.4 C L Pulse Rate 69 75 68 Respiratory Rate 22 H 21 H Blood Pressure 155/94 H 147/92 H Pulse Oximetry 100 100 Oxygen Delivery Room Air 10/12/23 18:57 10/12/23 20:20 10/13/23 00:00 Temperature 36.8 C Pulse Rate 59 L 68 Respiratory Rate 18 15 Blood Pressure 139/81 126/93 H Pulse Oximetry 100 99 99 Oxygen Delivery Room Air 10/12/23 20:16 10/12/23 22:00 10/13/23 00:00 Temperature 36.8 C Pulse Rate 60 59 L Respiratory Rate 19 19 Blood Pressure 129/76 113/76 Pulse Oximetry 99 97 98 Oxygen Delivery Room Air 10/13/23 02:00 10/13/23 04:00 10/13/23 06:00 Temperature 36.8 C Pulse Rate 56 L 59 L 56 L Respiratory Rate 18 21 H 20 Blood Pressure 146/74 H 128/78 118/47 L Pulse Oximetry 98 98 99 Oxygen Delivery 10/12/23 22:00 10/13/23 00:00 10/13/23 02:00 Temperature Pulse Rate 60 57 L 60 Respiratory Rate Blood Pressure Pulse Oximetry Oxygen Delivery 10/13/23 04:00 10/13/23 06:00 10/13/23 04:00 Temperature Pulse Rate 58 L 58 L Respiratory Rate Blood Pressure Pulse Oximetry 99 Oxygen Delivery Room Air 10/13/23 08:00 10/13/23 08:00 10/13/23 08:00 Temperature 36.2 C L Pulse Rate 58 L 58 L Respiratory Rate 20 Blood Pressure 133/76 Pulse Oximetry 100 Oxygen Delivery Room Air 10/13/23 10:00 10/13/23 10:00 10/13/23 13:56 Temperature 36.7 C 36.3 C L Pulse Rate 64 64 68 Respiratory Rate 20 20 Blood Pressure 118/79 120/62 Pulse Oximetry 98 99 Oxygen Delivery Intake/Output Intake/Output: Intake & Output 10/10/23 10/11/23 10/12/23 10/13/23 23:59 23:59 23:59 23:59 Intake Total 2478.6 1824.4 Output Total 720 1425 Balance 1758.6 399.4 Meds/Results Medications: Active Medications Generic Name Dose Route Start Last Admin Trade Name Freq PRN Reason Stop Dose Admin Acetaminophen 650 mg 10/12/23 23:20 Acetaminophen 325 Mg Tablet PO Q6H PRN Mild Pain (1-3) or Fever Dextrose 12.5 gm 10/12/23 18:53 Dextrose 50% 25 Gm/50 Ml Syringe IV PUSH PRN PRN Hypoglycemia Protocol Enoxaparin Sodium 40 mg 10/13/23 09:00 10/13/23 08:27 Enoxaparin 40 Mg/0.4 Ml Syringe SUB-Q 40 mg DAILY MEGHNA Administration Fenofibrate 160 mg 10/13/23 09:00 10/13/23 08:26 Fenofibrate 160 Mg Table
[2023-10-13 18:06] LABS: Glucose Point of Care 274 mg/dl (65-105)
[2023-10-13 20:11] LABS: Glucose Point of Care 260 mg/dl (65-105)
[2023-10-14 06:09] VITALS: BP 131/85; PULSE 61; RESP 16; TEMP 36.8; O2SAT 99
[2023-10-14 07:28] LABS: Glucose Point of Care 227 mg/dl (65-105)
[2023-10-14] MEDS: INSULIN ASPART (*BKC) 100 UNITS/ML SUB-Q ×4 (08:12→11:40)
[2023-10-14] MEDS: INSULIN GLARGINE (*BKC) 100 UNITS/ML 10 UNITS SUB-Q (08:13)
[2023-10-14] MEDS: ENOXAPARIN 40 MG/0.4 ML SYRINGE SUB-Q (08:17)
[2023-10-14] MEDS: LOSARTAN POTASSIUM 25 MG TABLET PO (08:19)
[2023-10-14] MEDS: FENOFIBRATE 160 MG TABLET BY MOUTH (08:19)
[2023-10-14] MEDS: ROSUVASTATIN 10 MG TABLET PO (08:19)
[2023-10-14 11:11] LABS: Glucose Point of Care 262 mg/dl (65-105)
--- NOTE | 2023-10-14 13:45 | PM.DS ---
DS: Admitting Diagnosis Discharge Date 10/14/2023 Admitting Diagnosis High blood sugar. DS: Discharge Diagnosis Discharge Diagnosis (1) Diabetic ketoacidosis associated with type 2 diabetes mellitus: Code(s): E11.10 - Type 2 diabetes mellitus with ketoacidosis without coma Status: Acute Assessment and Plan: 63-year-old male with hypertension and hyperlipidemia who presented to the emergency department for evaluation of hyperglycemia. The patient provides the following history. He presented to a local urgent care today for evaluation of weakness and increased thirst. His glucose was greater than 500 he was directed to the emergency department. With further questioning he endorses a pretty rapid an unintentional 50 lb weight loss over the last couple of months. He also has increased thirst and urination and reports that his mouth has been constantly dry the last several days. He is weak and overall just not feeling well. Pt to icu for DKA, DKA protocol, pt did well sugars better 120 ok to Dc. with PCP follow up Pt spoke to DM educator in hospital and had DM dietary advice. (2) New onset type 2 diabetes mellitus: Code(s): E11.9 - Type 2 diabetes mellitus without complications Status: Acute (3) Hypertension: Code(s): I10 - Essential (primary) hypertension Status: Acute (4) Mixed hyperlipidemia: Code(s): E78.2 - Mixed hyperlipidemia Status: Acute DS: Summary Hospital Course Hospital Course: dka fluid hydration Continue insulin drip which will be titrated per DKA protocol. Monitor q.4 hour BMPs and Q hourly Accu-Cheks. He will be transition to long-acting insulin upon resolution of DKA. Dietitian and telehealth nurse educator consulted. Blood pressures were reviewed and they are stable. new onset DM Pt is stable now for transfer to the floor ok to dc on lantus pens, metformin and Januvia Time Spent with Patient Time attestation: Total time spent providing and/or coordinating discharge services:40 minutes on day of dc Exam Narrative: General: Pt is alert awake Lungs/Chest: Trachea central Clear BS B/L, No crackles or wheezing. Cardiac: RRR. Normal S1 S2. No murmurs Circulation: Pedal pulses are intact and symmetrical. Abdomen: Normal bowel sounds.. Soft. NT. ND. Extremities: No clubbing, cyanosis or edema. Warm : Felix in place Neurologic: Follows commands. Moves all 4 extremities PERRL Skin: No Rash DS: Data Data Completed and Pending Labs on day of discharge: Labs from last 24 hours 10/14/23 10/14/23 10/13/23 11:09 07:24 20:00 POC Capillary Glucose 262 H 227 H 260 H 10/13/23 18:04 POC Capillary Glucose 274 H Discharge Plan Discharge Attending physician on discharge: Snehal Lora Consulting providers: Ronald Mederos Discharging Clinician: Snehal Lora Anticipated Discharge Date/Time: 10/14/23 13:39 Patient Disposition: Home, Self-Care Activity: as tolerated Diet: diabetic Patient Instructions: Antibiotic Form, Diabetic Ketoacidosis (DC), Type 2 Diabetes in Adults: New Diagnosis (DC), Basic Carbohydrate Counting (DC), Meal Planning with the Plate Method (DC), Meal Planning with Diabetes Exchanges (DC), Insulin Pens (GEN), Managing Diabetes During Sick Days (DC), What to Do if Your Blood Sugar is Low (DC) Stand Alone Forms: General Discharge Information Follow-up/Referrals: Edwin,Hui Goodman MD [Primary Care Provider] - Discharge Medications: New insulin glargine [Lantus Solostar U-100 Insulin] 100 unit/mL (3 mL) insulin pen 10 unit subcut QPM Qty: 3 1RF metformin 500 mg tablet 500 mg PO DAILY Qty: 30 0RF Januvia 25 mg tablet 25 mg PO DAILY Qty: 30 1RF (DME) OneTouch Verio test strips Strip See Rx Instructions .Route Qty: 50 0RF Rx Instructions: As directed (DME) pen needle, diabetic [Pen Needle] 29 gauge x 1/2 needle See Rx Instructions .Route Qty: 100 0RF
[2023-10-14 13:51] VITALS: BP 127/82; PULSE 68; RESP 16; TEMP 36.4; O2SAT 98
== END 2023-10-14 14:30 | disposition home or self-care (01) ==
LOC: ANHED 19:25 → ANHICU 20:27 → ANH3MEDSUR 10-13 16:03 → ANHICU 10-15 09:19
PROVIDERS: Internal Medicine; Physician Assistant; Admitting Provider Hospitalist; Emergency Provider Emergency Medicine; PCP Family Medicine; Visit Provider Family Medicine
DX: E11.10 Type 2 diabetes mellitus with ketoacidosis without coma (principal); E78.2 Mixed hyperlipidemia; I10 Essential (primary) hypertension; Z87.891 Personal history of nicotine dependence
CPT/HCPCS: 36415; 36600; 71045; 80048; 80053; 81003; 82010; 82375; 82805; 82948; 83036; 83050; 83735; 84100; 85025; 87641; 96361; 96365; 96366; 96367; 96372; 96374; 99285; A9270; G0378; J1650; J1815; J3480; J7030

== ENCOUNTER 2023-12-17 08:15 | Outpatient (RCR) | payer OTHER, SELFPAY ==
[2023-11-19 08:13] VITALS: BMI 25.7
[2023-11-19 08:15] VITALS: BMI 25.7
[2023-12-17 08:15] VITALS: BMI 25.7
== END 2024-02-02 11:20 | disposition home or self-care (01) ==
LOC: ANHDMC 08:15
PROVIDERS: PCP Family Medicine; Visit Provider Family Medicine
DX: E11.9 Type 2 diabetes mellitus without complications (principal); Z71.3 Dietary counseling and surveillance; Z71.89 Other specified counseling
CPT/HCPCS: 97802; 97803; G0108